=== PATIENT | female | born 1990 | race African-American/Black ===

== ENCOUNTER → 2020-06-23 | Outpatient (CLI) | payer OTHER ==
--- NOTE | 2020-06-24 10:36 | REPPI ---
INDICATION: LEFT FOOT PAIN COMPARISON: None. TECHNIQUE: AP, lateral, bilateral oblique views left foot. FINDINGS: The osseous structures and joint spaces are intact and normal. There is no evidence for acute fracture or dislocation. Surrounding soft tissues are unremarkable. No subcutaneous emphysema or radiodense foreign body. IMPRESSION: Normal left foot series. No acute fracture or dislocation. <Electronically signed by Marc Mason > 06/24/20 1031
== END ==
LOC: M PLAIMG 13:27
PROVIDERS: ATTEND Physician Assistant
DX: M79.672 Pain in left foot (principal)